=== PATIENT | male | born 1940 | race Caucasian/White ===

== ENCOUNTER → 2016-06-28 | Outpatient (CLI) | payer MEDICARE ==
[~2016-06-28] MED LIST: ALEN70TA5 PO; ALPR1TAB2 PO; AMLO10TA2 PO; ASPI-621 PO; CHOL200012 PO; FAMO20TA7 PO; FLUT9.9S NS; LOSA1TAB16 PO; METF500T27 PO; NITR0.4T8 SL; OMEP-110 PO; RAMI2.5C PO; ROSU40TA PO; SOTA120T26 PO; TRAV5DRO EACHEYE; UBID1CAP24 PO; VITA1CAP PO; ZOLP10TA5 PO
== END | disposition home or self-care (01) ==
LOC: LAB 13:27
PROVIDERS: ATTEND Nurse Practitioner Family
DX: I25.10 Atherosclerotic heart disease of native coronary artery without angina pectoris (principal); I10 Essential (primary) hypertension; K21.9 Gastro-esophageal reflux disease without esophagitis; R13.19 Other dysphagia; R07.9 Chest pain, unspecified
CPT/HCPCS: 36415; 83880

== ENCOUNTER → 2016-07-04 | Outpatient (CLI) | payer MEDICARE | END | disposition home or self-care (01) | LOC: CFH 09:06 | PROVIDERS: ATTEND Nurse Practitioner Family | DX: R13.19 Other dysphagia (principal); K21.9 Gastro-esophageal reflux disease without esophagitis; I25.9 Chronic ischemic heart disease, unspecified; I10 Essential (primary) hypertension; R07.9 Chest pain, unspecified | CPT/HCPCS: 74220 ==

== ENCOUNTER 2017-01-30 11:19 | Emergency (ER) | payer MEDICARE ==
[~2017-01-30] VITALS: Ht 172.7 cm; Wt 66.0 kg
[~2017-01-30 11:19] MED LIST changes: -CHOL200012 PO; +CHOL200074 PO; -LOSA1TAB16 PO; +LOSA1TAB19 PO; +NITR0.4T28 SL; -NITR0.4T8 SL; -UBID1CAP24 PO; +UBID1CAP43 PO
[2017-01-30] MEDS ORDERED: DILTIAZEM 5 MG/ML, 5ML IV ONE (11:30)
[2017-01-30] MEDS ORDERED: SODIUM CHLORIDE FLUSH 10ML SYR IVF ONE (11:30)
[2017-01-30] MEDS ORDERED: ONDANSETRON 2MG/ML, 2ML IVPush ONE (11:30)
[2017-01-30] MEDS ORDERED: ONDANSETRON 2MG/ML, 2ML ONE (11:39)
[2017-01-30] MEDS ORDERED: DILTIAZEM 5 MG/ML, 5ML ONE (11:39)
[2017-01-30 11:52] LABS: HEMATOCRIT 50.4 % (39.2-51.8); HEMOGLOBIN 16.9 g/dL (13.7-18.0); WHITE BLOOD COUNT 7.6 x10^3/uL (3.4-10)
[2017-01-30 12:01] LABS: ASPARTATE AMINO TRANSFERASE 23 U/L (15-37); BLOOD UREA NITROGEN 18 mg/dL (7-18)
[2017-01-30 12:06] LABS: IS PT STATUS REG ER OR PRE ER? YES
[2017-01-30] MEDS ORDERED: PROPOFOL 10 MG/ML, 20ML IVP ONE (13:00)
[2017-01-30] MEDS ORDERED: PROPOFOL 10 MG/ML, 20ML ONE (13:07)
[2017-01-30 15:36] VITALS: BP 102/69
== END 2017-01-30 15:38 | disposition home or self-care (01) ==
LOC: ED 12:11
DX: I48.91 Unspecified atrial fibrillation (principal); I47.2 Ventricular tachycardia; I11.9 Hypertensive heart disease without heart failure; E11.9 Type 2 diabetes mellitus without complications; E78.5 Hyperlipidemia, unspecified; K21.9 Gastro-esophageal reflux disease without esophagitis; I25.10 Atherosclerotic heart disease of native coronary artery without angina pectoris; Z87.891 Personal history of nicotine dependence
CPT/HCPCS: 36415; 71010; 80053; 83735; 83880; 84443; 84484; 85025; 85610; 85730; 93005; 96374

== ENCOUNTER 2017-08-29 17:15 | Emergency (ER) | payer MEDICARE ==
[~2017-08-29] VITALS: Ht 172.7 cm; Wt 65.5 kg
[2017-08-29 18:09] LABS: BASOPHILS # (AUTO) 0.05 x10^3/uL (0-0.1); BASOPHILS % (AUTO) 1 % (0-1); EOSINOPHILS # (AUTO) 0.21 x10^3/uL (0-0.4); EOSINOPHILS % (AUTO) 2 % (1-7); LYMPHOCYTES # (AUTO) 3.42 x10^3/uL (1-3.4); LYMPHOCYTES % (AUTO) 35 % (22-44); MD NO; MEAN CORPUSCULAR HEMOGLOBIN 31.7 pg (27.5-34.5); MEAN CORPUSCULAR HGB CONC 33.6 g/dL (33.2-36.2); MEAN CORPUSCULAR VOLUME 94.3 fL (81-97); MEAN PLATELET VOLUME 8.1 fL (7.4-10.4); MONOCYTES # (AUTO) 0.99 x10^3/uL (0.2-0.8); MONOCYTES % (AUTO) 10 % (2-9); NEUTROPHILS # (AUTO) 5.07 x10^3/uL (1.8-6.8); NEUTROPHILS % (AUTO) 52 % (42-75); PLATELET COUNT 189 x10^3/uL (130-400); RED BLOOD COUNT 4.85 x10^6/uL (4.38-5.82); RED CELL DISTRIBUTION WIDTH 14.4 % (9.4-14.8)
[2017-08-29 18:19] LABS: ALBUMIN 3.7 g/dL (3.4-5.0); ANION GAP 5 mmol/L (5-15); CALCIUM 9.4 mg/dL (8.5-10.1); CHLORIDE 107 mmol/L (98-107)
[2017-08-29 18:35] LABS: TROPONIN I < 0.015 ng/mL (0.000-0.045)
[2017-08-29 19:17] VITALS: BP 126/69
== END 2017-08-29 19:20 | disposition home or self-care (01) ==
LOC: ED 18:38
DX: G44.219 Episodic tension-type headache, not intractable (principal); I10 Essential (primary) hypertension; E11.9 Type 2 diabetes mellitus without complications; I47.2 Ventricular tachycardia; I48.91 Unspecified atrial fibrillation; K21.9 Gastro-esophageal reflux disease without esophagitis; I25.10 Atherosclerotic heart disease of native coronary artery without angina pectoris; E78.5 Hyperlipidemia, unspecified
CPT/HCPCS: 36415; 70450; 71045; 80048; 82040; 84484; 85025; 93005; 99285

== ENCOUNTER → 2017-12-21 | Outpatient (CLI) | payer MEDICARE ==
[~2017-12-21] MED LIST changes: -AMLO10TA2 PO; +AMLO10TA6 PO; -RAMI2.5C PO; +RAMI2.5C2 PO; +REGADENOSON 0.4 MG/5 ML SYRINGE ONE
== END | disposition home or self-care (01) ==
LOC: CFH 08:08
PROVIDERS: ATTEND Internal Medicine Cardiovascular Disease
DX: I10 Essential (primary) hypertension (principal); I48.0 Paroxysmal atrial fibrillation; R07.9 Chest pain, unspecified
CPT/HCPCS: 78452; 93017; A9502; J2785

== ENCOUNTER → 2018-01-15 | Outpatient (CLI) | payer MEDICARE ==
[~2018-01-15] MED LIST changes: -REGADENOSON 0.4 MG/5 ML SYRINGE ONE
== END | disposition home or self-care (01) ==
LOC: CFH 09:54
PROVIDERS: ATTEND Internal Medicine
DX: E04.2 Nontoxic multinodular goiter (principal)
CPT/HCPCS: 76536

== ENCOUNTER → 2018-01-19 | Outpatient (CLI) | payer MEDICARE | END | disposition home or self-care (01) | LOC: CFH 11:13 | PROVIDERS: ATTEND Internal Medicine | DX: Z13.820 Encounter for screening for osteoporosis (principal); M81.8 Other osteoporosis without current pathological fracture | CPT/HCPCS: 77080 ==

== ENCOUNTER → 2020-05-22 | Outpatient (CLI) | payer MEDICARE ==
[~2020-05-22] MED LIST changes: -ALEN70TA5 PO; +ALEN70TA77 PO; +AMLO-211 PO; -AMLO10TA6 PO; +APIX2.5T PO; -ASPI-621 PO; +ASPI81TA45 PO; +OMNIPAQUE 300 MG/ML, 10ML VIAL ONE; -RAMI2.5C2 PO; +RAMI2.5C49 PO
== END | disposition home or self-care (01) ==
LOC: CFH 14:03
PROVIDERS: ATTEND Internal Medicine
DX: J47.9 Bronchiectasis, uncomplicated (principal); E04.1 Nontoxic single thyroid nodule; R91.8 Other nonspecific abnormal finding of lung field
CPT/HCPCS: 71260; 76536; 82565; Q9967

== ENCOUNTER 2020-09-03 10:42 | Outpatient (CLI) | payer MEDICARE ==
[~2020-09-03 10:42] MED LIST changes: -OMNIPAQUE 300 MG/ML, 10ML VIAL ONE
== END 2020-09-03 23:59 | disposition home or self-care (01) ==
LOC: CFH 10:42
PROVIDERS: ATTEND Internal Medicine
DX: R91.8 Other nonspecific abnormal finding of lung field (principal); J18.9 Pneumonia, unspecified organism
CPT/HCPCS: 71250